=== PATIENT | male | born 1955 | race Caucasian/White ===

== ENCOUNTER 2017-03-07 05:25 | Inpatient (IN) | payer MEDICAID ==
[2017-03-06 15:15] LABS: HEMATOCRIT 44.2 % (42.0-54.0); HEMOGLOBIN 15.5 g/dL (13.5-17.5); MCH 29.4 pg (26.0-34.0); MCHC 35.1 g/dL (31.0-37.0); MCV 83.7 fL (80.0-100.0); MEAN PLATELET VOLUME 9.1 fL (7.4-10.4); RBC 5.28 10x6/uL (4.20-6.10); RDW 12.1 % (11.5-14.5); WBC 7.1 10x3/uL (4.8-10.8)
[2017-03-06 15:33] LABS: CALC OSMOLALITY 282 mosm/kg (275-300); CALCIUM 9.1 mg/dL (8.5-10.1); CARBON DIOXIDE 27.8 mmol/L (21.0-32.0); CHLORIDE - SERUM 106 mmol/L (98-107); GLUCOSE 102 mg/dL (74-106); POTASSIUM - SERUM 4.3 mmol/L (3.5-5.1); SODIUM 141 mmol/L (136-145); UREA NITROGEN 19 mg/dL (7-18); eGFR NON AFRICAN AMERICAN 81 mL/min (90-120)
[2017-03-07] VITALS (23 sets, daily range): BP systolic 131–169; BP diastolic 75–100; BMI 23.8; BMI 24.6
[~2017-03-07 05:25] MED LIST: FLUTICASONE PRO16 GM NASAL; HYDROCODONE-APA1 TAB PO; LANOXIN250 MCG PO; ZOCOR40 MG PO
--- NOTE | 2017-03-07 11:33 | NUR ---
RECIEVED PT FROM RR. AWAKE AND ALERT. ASSESSMENT PER FLOWSHEET.
--- NOTE | 2017-03-07 16:05 | NUR ---
SLEEPING NO DISTRESS NOTED. SR UP X 2. CALL LIGHT WITHIN REACH.
--- NOTE | 2017-03-07 21:00 | NUR ---
FAMILY AT BS VISITING. UPDATE GIVEN AND QUESTIONS ANSWERED.
--- NOTE | 2017-03-07 23:13 | NUR ---
REASSESSMENT PER FLOWSHEET, NO ACUTE CHANGES. STERILE NON ADHERENT DSG APPLIED TO R NECK INCISION PER PT REQUEST. VSS. C/L IN REACH.
[2017-03-08] VITALS (22 sets, daily range): BP systolic 126–166; BP diastolic 71–88
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
--- NOTE | 2017-03-08 03:12 | NUR ---
ABGS RESULTED. K+ 4.8. REASSESSMENT PER FLOWSHEET, NO ACUTE CHANGES. PT LESS CONFUSED, COOPERATIVE. I.S. 1500 WITH GOOD COUGH. ENCOURAGED DB&C.
--- NOTE | 2017-03-08 03:24 | NUR ---
REASSESSMENT PER FLOWSHEET, NO ACUTE CHANGES. PT RESTING QUIETLY, DENIES PAIN OR NEEDS. VSS. C/L IN REACH.
--- NOTE | 2017-03-08 04:44 | NUR ---
STATUS REPORT CALLED TO DR. MORALES. NEW ORDER TO CONSULT DR. BOSS. GEOVANI WELSH.
[2017-03-08 05:11] LABS: BASOPHILS 0.1 % (0-2); EOSINOPHILS 0.1 % (0-7); HEMATOCRIT 42.8 % (42.0-54.0); HEMOGLOBIN 14.9 g/dL (13.5-17.5); IMMATURE GRANULOCYTES 0.3 % (0-5); LYMPHOCYTES 14.2 % (15-50); MCH 29.2 pg (26.0-34.0); MCHC 34.8 g/dL (31.0-37.0); MCV 83.8 fL (80.0-100.0); MONOCYTES 10.6 % (2-11); NEUTROPHILS 74.7 % (40-80); PLATELET COUNT 181 10x3/uL (130-400); RBC 5.11 10x6/uL (4.20-6.10); RDW 12.2 % (11.5-14.5)
--- NOTE | 2017-03-08 05:13 | NUR ---
ADMIN PRN NORCO FOR C/O INCISIONAL SORENESS. IV SL'D. PT DENIES OTHER NEEDS.
--- NOTE | 2017-03-08 06:00 | NUR ---
SISTER AT BS. UPDATE GIVEN AND QUESTIONS ANSWERED. PT REPORTS ADEQUATE PAIN RELIEF. VSS. C/L IN REACH.
--- NOTE | 2017-03-08 06:18 | NUR ---
DR. KARYN GOODEN
[2017-03-08 06:41] LABS: CALC OSMOLALITY 279 mosm/kg (275-300); CALCIUM 8.8 mg/dL (8.5-10.1); CHLORIDE - SERUM 102 mmol/L (98-107); CREATININE - SERUM 0.9 mg/dL (0.6-1.3); GLUCOSE 132 mg/dL (74-106); POTASSIUM - SERUM 3.9 mmol/L (3.5-5.1); SODIUM 139 mmol/L (136-145); UREA NITROGEN 13 mg/dL (7-18); eGFR NON AFRICAN AMERICAN > 90 mL/min (90-120)
--- NOTE | 2017-03-08 07:49 | NUR ---
REPORT RECEIVED. SHIFT ASSESSMENT COMPLETE. PT AWAKE AND CONVERSANT. PT DENIES PAIN AT THIS TIME. SAYS "TINGLING IN LEFT ARM GETTING BETTER" STILL HAS SOME IN HIS THUMB. SOME SWELLING NOTED AT INCISION SITE OF RIGHT NECK. DRESSING INTACT AND CLEAN. BREAKFAST TRAY PROVIDED. PT QUESTIONING HOME MEDICATIONS.
--- NOTE | 2017-03-08 09:02 | NUR ---
SISTER AT BEDSIDE FOR VISITATION. ASKING ABOUT PT HOME MEDICATION. HAVE NOT BEEN RESTARTED BY PHYSICIAN. AWAITING DR MORALES TO ADDRESS.
--- NOTE | 2017-03-08 09:37 | NUR ---
SPOKE WITH DR MORALES. OK TO GIVE PT DIGOXIN DOSE. WANTS SAN CATHETER REMOVED TO SEE IF PATIENT ABLE TO URINATE ON HIS OWN. IN/OUT CATH PRN.
--- NOTE | 2017-03-08 09:50 | NUR ---
DR BOSS OFFICE CALLED TO SEE WHEN HE MIGHT COME SEE PATIENT. HAVE ORDERS TO REMOVE SAN, BUT WANTED UROLOGY INPUT PRIOR TO REMOVING IN CASE WANTS TO KEEP FOR FEW DAYS AND EVALUATE IN THE OFFICE.
--- NOTE | 2017-03-08 10:45 | NUR ---
DR BOSS CALLED BACK. ASKS THAT THE SAN REMAIN UNTIL HE COMES TO SEE PATIENT.
--- NOTE | 2017-03-08 11:27 | NUR ---
PT RESTING QUIETLY WITH EYES CLOSED AT THIS TIME. NO DISTRESS NOTED. SINUS JOHN IN 50'S ON THE MONITOR.
--- NOTE | 2017-03-08 14:03 | NUR ---
PT SLEEPING AT THIS TIME. NO DISTRESS NOTED. CALL LIGHT IN REACH.
--- NOTE | 2017-03-08 16:52 | NUR ---
PT UP IN CHAIR AT BEDSIDE FOR LAST HOUR. DINNER TRAY PROVIDED TO HIM.
--- NOTE | 2017-03-08 17:49 | NUR ---
PT ASSISTED BACK TO BED. PAIN PILL REQUESTED AND PROVIDED. DR MORALES HAS BEEN BY TO SEE PATIENT. PLAN IS TO DISCHARGE TOMORROW. STILL AWAITING DR BOSS TO COME SEE.
--- NOTE | 2017-03-08 18:29 | NUR ---
DR BOSS BY TO SEE PATIENT. SISTER AT BEDSIDE. PT WILL GO HOME WITH SAN CATHETER AND FOLLOW UP WITH DR BOSS IN 2 WEEKS. STARTING ON FINASTERIDE AND FLOMAX. NEOSPORIN TO URETHRAL OPENING TID.
--- NOTE | 2017-03-08 19:30 | NUR ---
REPORT RECEIVED AND CARE ASSUMED. INITIAL SHIFT ASSESSMENT COMPLETED SEE FLOWSHEET. CONTINUE TO MONITOR PT PER STANDARD CVICU PROTOCOL WITH ALL ALARMS VERIFED AND SET. IV IS S/L TO RIGHT HAND. PT ENCOURAGED TO CALL NURSE BEFORE GETTING OOB PT VERBALIZED COMPREHENSION
--- NOTE | 2017-03-08 20:15 | NUR ---
PT TEACHING AND DEMONSTRATION ON SAN CARE. PT RETURNED DEMONSTRATION WITH GOOD COMPREHENSION
--- NOTE | 2017-03-08 21:00 | NUR ---
MEDS GIVEN DOCUMENTED ON JUL. PT TEACHING DONE FOR PT AND FAMILY. VERBALIZED COMPREHENSION
--- NOTE | 2017-03-08 23:00 | NUR ---
PT HAS BEEN SLEEPING WELL RESPIRATIONS REG AND NONLABORED. ABLE TO TURN SELF INDEPENDENTLY
--- NOTE | 2017-03-09 01:00 | NUR ---
PT SLEEPING WELL TONIGHT. NOTE HR IN 50'S. WILL REPORT IN AM. PT IS ASYMPTOMATIC. DID RESTART HOME LANOXIN TODAY
[2017-03-09 03:00] VITALS: BP 165/96
--- NOTE | 2017-03-09 03:00 | NUR ---
pt has been sleeping, easily awaken. denies needs. no neuro changes, vss. remains bradycardic.
--- NOTE | 2017-03-09 03:30 | NUR ---
pt awake alert. c/o discomfort at insertion site of catheter. no visible trauma. hr in 80-90's. denies needs. continue to monitor
--- NOTE | 2017-03-09 04:24 | NUR ---
PT UP TO BR TO DEFECATE. PT TEACHING DONE ON F/C CARE AND MAINTAINENCE. PT DEMONSTRATED COMPREHENSION AMBULATING WITH BAG BELOW BLADDER LEVEL AND GUARDING TUBING TO PREVENT ACCIDENTAL DISLODGEMENT.
--- NOTE | 2017-03-09 05:30 | NUR ---
pt is up in chair watching television
[2017-03-09 07:00] VITALS: BP 147/91
--- NOTE | 2017-03-09 08:05 | NUR ---
Is the patient Alert and Oriented? Yes 0 * How many steps to enter\exit or inside your home? 4-5 rail 0 * PCP DR. JUÁREZ 0 * Pharmacy [facility] IN [place] 0 * Preadmission Environment Home Alone 0 * ADLs Independent 0 * Equipment None 0 * List name and contact numbers for known caregivers / representatives who currently or will assist patient after discharge: SISTER: DAVY [phone] [place] [phone] 0 * Community resources currently utilized None 0 * Additional services required to return to the preadmission environment? No 0 * Can the patient safely return to the preadmission environment? Yes 0 * Has this patient been hospitalized within the prior 30 days at any hospital? No PATIENT IS AWAKE AND ALERT. HE STATES HE LIVES ALONE BUT THAT HIS LADY FRIEND AND HIS SISTERS WILL BE AVAILABLE TO ASSIST HIM NEEDED. HIS SISTER, DAVY, WILL DRIVE HIM HOME AT DISCHARGE. DAVY: [phone] OR [phone]. PATIENT STATES DR. JUÁREZ IS HIS PCP. HE GETS HIS MEDS FROM [facility] IN [place]. PATIENT DENIES USE OF ANY DME AND DENIES EVER HAVING HOME HEALTH. HE WAS INDEPENDENT IN ALL ADL'S PRIOR TO COMING INTO THE HOSPITAL. THERE ARE 4-5 STEPS TO ENTER HIS HOME AND HE HAS A RAIL. PATIENT DENIES ANY DISCHARGE NEEDS AT THIS TIME.
--- NOTE | 2017-03-09 11:03 | NUR ---
DISCHARGE INSTRUCTIONS REVIEWED WITH PATIENT AND SISTER. SAN SITE CARE AND HOW TO EMPTY AND POSITION BAG REVIEWED WITH PATIENT AND SISTER. DISCHARGE INSTRUCTIONS PROVIDED TO PATIENT ALONG WITH WRITTEN PRESCRIPTIONS. NO ADDITIONAL QUESTIONS VOICED. RIGHT HAND IV HAS BEEN REMOVED, TIP INTACT.
--- NOTE | 2017-03-18 08:39 | OP ---
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 PROCEDURE: Anterior cervical discectomy and fusion at C5-C6 and C6-C7 with removal of osteophytes, PEEK interbody cages, Biocell stem cells bone allograft at C5-C6 and C6-C7; VIP anterior cervical plate and screws from [employer] and colonial interbody PEEK cages. DESCRIPTION AND TECHNIQUE: After induction of general endotracheal anesthesia, the patient was positioned supine on the operating table. Neck was prepped and draped in the usual sterile fashion. Fluoroscopic x-ray and Troy dissector localized the C5 vertebral body. A transverse skin incision was carried out from the midline to the sternocleidomastoid muscle. The platysma was divided with Bovie cautery. Using blunt and sharp dissection with Metzenbaum scissors, I proceeded in an avascular plane medial to the carotid sheath. The longus colli muscles were elevated from bodies of C5, C6 and C7. A self-retaining retractor was placed deep to the longus colli muscles. Laie distracting pins were placed by the C5, C6 and C7. Disk spaces were incised with #11 blade at both levels under distraction. Osteophytes were drilled away posteriorly with Midas-Chris drill. The posterior longitudinal ligament was removed with Cloward rongeurs. Following this, the dura was decompressed at both levels. A PEEK interbody cage was placed in each disk space after preparation of the endplates. These PEEK cages were filled with Biocell bone stem cells prior to placement of the cages. A VIP anterior cervical 32-mm plate was used to span the C5-C6 and C6-C7 interspaces. Self-drilling screws were placed through the vertebral bodies through the holes of the plate. Locking cams were tightened down the screw heads. Meticulous hemostasis was maintained throughout the wound. The wound was irrigated with copious amounts of Ancef irrigant solution. The platysma and subdermal layer were closed with interrupted 3-0 Vicryl suture. The skin was reapproximated with a Dermabond skin cement. The patient was awakened in good condition and taken to recovery. All counts were reported as correct. Estimated blood loss was minimal. TRANSINT:[id number] Voice Confirmation ID: [id number] DOCUMENT ID: [id number] SNEHAL MORALES MD at 0839 CC: [id number] DICTATION DATE: 03/16/17 0853 TICKET COLLECTOR: 03/16/17 1213 DIS IN 03/09/17 [facility] [address] [place] [address]
--- NOTE | 2017-05-09 13:26 | DS ---
PATIENT:HOWARD CALLAWAY :59 MEDICAL RECORD: [id number] DISCHARGE SUMMARY ADMISSION DATE: 03/07/17 DISCHARGE DATE: 03/09/17 DATE OF ADMISSION: 03/07/2017 DATE OF DISCHARGE: 03/08/2017 ADMISSION DIAGNOSIS: Cervical radiculopathy secondary to osteophyte formation at C5-C6 and C6-C7. HOSPITAL COURSE: The patient was admitted after surgery for 2-level ACF at C5-C6 and C6-C7. He tolerated the procedure well, was monitored overnight in the ICU on IV Decadron. He was discharged home on the following morning with a regular diet and hydrocodone for pain. He is to follow up with Dr. Morales in 1 week with a lateral C-spine. DIET: Regular. TRANSINT:[id number] Voice Confirmation ID: [id number] DOCUMENT ID: [id number] SNEHAL MORALES MD at 1326 CC: [id number] DICTATION DATE: 05/02/171712 HAZARDOUS MATERIALS ANALYST: 05/03/17 1146 DIS IN 03/09/17 [id number] [place] [address]
== END 2017-03-09 11:06 | disposition home or self-care (01) | DRG 473 ==
LOC: D.CVICU 05:25 → D.SDCHOLD 05:25 → D.CVICU 09:15
PROVIDERS: Anesthesiology; ADMIT Neurological Surgery
PROC: 0RG20K0 Fusion of 2 or more Cervical Vertebral Joints with Nonautologous Tissue Substitute, Anterior Approach, Anterior Column, Open Approach (ICD-10-PCS; 2017-03-07)
PROC: 0RG20A0 Fusion of 2 or more Cervical Vertebral Joints with Interbody Fusion Device, Anterior Approach, Anterior Column, Open Approach (ICD-10-PCS; principal; 2017-03-07 07:30)
PROC: 0RB30ZZ Excision of Cervical Vertebral Disc, Open Approach (ICD-10-PCS; 2017-03-07 07:30)
DX: M50.122 Cervical disc disorder at C5-C6 level with radiculopathy (principal); M50.123 Cervical disc disorder at C6-C7 level with radiculopathy; M25.78 Osteophyte, vertebrae; R33.9 Retention of urine, unspecified; N40.1 Benign prostatic hyperplasia with lower urinary tract symptoms; N39.41 Urge incontinence; M48.02 Spinal stenosis, cervical region

== ENCOUNTER → 2017-03-22 18:36 | Outpatient (CLI) | payer MEDICAID ==
[2017-03-07 12:00] VITALS: BMI 24.6
[~2017-03-22 18:36] MED LIST changes: +PROSCAR5 MG PO
== END | disposition home or self-care (01) ==
LOC: D.LABREF 18:36
DX: N39.0 Urinary tract infection, site not specified (principal)

== ENCOUNTER 2017-06-14 10:46 | Outpatient (CLI) | payer MEDICAID ==
[~2017-06-14] VITALS: Ht 182.9 cm; Wt 77.3 kg
--- NOTE | ~2017-06-14 | OP ---
PATIENT NAME: HOWARD CALLAWAY MEDICAL RECORD: [id number] :59 LOCATION:[facility] ADMISSION DATE: SURGEON: CISCO REY MD DATE OF OPERATION: 06/14/2017 PROCEDURE: Left heart catheterization, selective coronary angiography, right radial approach. CATHETERS: Radial sheath, Charlotte catheter. The procedure was well tolerated and the patient returned to patel, sheath removed and TR band was placed. FINDINGS: Left ventriculography in the 30-degree GOODMAN view: Normal wall motion. Normal systolic function. CORONARY ANATOMY: LEFT MAIN: Left main is free of disease. LAD: Free of disease in the diagonal system. CIRCUMFLEX: Free of disease in the marginal system. RIGHT CORONARY ARTERY: Dominant artery, gives rise to the PDA, free of disease. IMPRESSION: Normal systolic function. Normal coronary anatomy. TRANSINT:[id number] Voice Confirmation ID: [id number] DOCUMENT ID: [id number] CISCO REY MD at 1347 CC: [id number] DICTATION DATE: 06/14/17 1334 BROADCAST JOURNALIST: 06/14/17 1709 DEP CLI 06/14/17 [address] [place] [address]
--- NOTE | ~2017-06-14 | HEMODYNAMI ---
PATIENT:HOWARD CALLAWAY MEDICAL RECORD: [id number] : 59 LOCATION:[facility] ADMISSION DATE: 06/14/17 Generatedon:06/14/201713:29 Patient name: HOWARD CALLAWAY Patient #: [id number] SSN: [id number] : 1955 Date of study: 06/14/2017 Page: Of Hemodynamic Procedure Report Patient Data Patient Demographics Procedure consent was obtained First Name: HOWARD Gender: Male Last Name: CESIA : 1955 [facility] Initial: MAGGY Age: 61 year(s) Patient #: [id number] Race: SSN: [id number] Additional ID: [id number] Contact details Address: [address] [place] [address] State: [place] City: [place] Zip code: [address] Admission Admission Data Admission Date: 06/14/2017 Admission Time: 10:46 Arrival Date: 06/14/2017 Arrival Time: 13:00 Admit Source: Other Insurance Payor: Private health insurance Height (in.): 72 BSA: 2.1 (m2) Height (cm.): 182.88 BMI: 26.31 (kg/m2) Weight (lbs.): 194 Weight (kg.): 88 Lab Results Lab Result Date: 06/14/2017 Lab Result Time: 0:00 Biochemistry Name Units Result Min Max BUN mg/dl 14 --(--*-)-- 7 18 Creatinine mg/dl 1 --(--*-)-- 0.6 1.3 CBC Name Units Result Min Max Hemoglobin g/dl 15.7 --(--*-)-- 13.5 17.5 Procedure Procedure Types Cath Procedure Diagnostic Procedure [facility] w/Coronaries Miscellaneous Procedures Moderate Sedation up to 30 minutes Procedure Description Procedure Date Procedure Date: 06/14/2017 Procedure Start Time: 13:18 Procedure End Time: 13:27 Procedure Staff Name Function Wilmar Cao MD Performing Physician Cathy Ye RT Monitor Anabel Bull RN Nurse Felix Baez RT Scrub Indication Angina Procedure Data Cath Procedure Fluoroscopy Diagnostic fluoroscopy Total fluoroscopy Time: 1 time: 1 min min Diagnostic fluoroscopy Total fluoroscopy dose: 235 dose: 235 mGy mGy Contrast Material Contrast Material Type Amount (ml) Isovue 300 40 Entry Location Entry Primary Successful Side Size Upsize Upsize Entry Closure Griffin ccessful Closure Location (Fr) 1 (Fr) 2 (Fr) Remarks Device Remarks Radial Right 5 Fr Mechanical artery Compression Estimated blood loss: 5 ml Diagnostic catheters Device Type Used For End Catheter Placement DIAGNOSTIC Pindall 110cm 5 Multi-vessel Fr catheter ([id number]) Angiography Procedure Complications No complications Procedure Medications Medication Administration Route Dosage 0.9% NaCl I.V. 100 ml/hr Oxygen NC 2 l/min Lidocaine 2% added to field 20 Heparin Flush Bag added to field 2 bags (1000units/500ml NS) Radial Cocktail added to field 1 syringe (Verapomil 2mg/Nitro 400mcg/Heparin 1500units) Fentanyl I.V. 50 mcg Versed I.V. 1 mg Versed I.V. 1 mg Fentanyl I.V. 50 mcg Fentanyl I.V. 100 mcg Hemodynamics Rest BSA: 2.1 (m2) HGB: 15.7 (g/dl) O2 Consumption: Estimated: 240.38 (ml/min) O2 Con sumption indexed: Estimated:114.47 (ml/min/m) Heart Rate: 61 (bpm) Pressure Samples Time Site Value (mmHg) Purpose Heart Use Rate(bpm) 13:22 LV 203/2,91 Snapshot 128 13:22 AO 121/68(91) Pullback 78 13:22 LV 120/0,5 Pullback 78 Gradients Valve Time Site 1 Site 2 Mean SEP/DFP Peak To Heart Use (mmHg) (sec/min) Peak Rate (mmHg) (bpm) Aortic 13:22 LV AO 0 9 0 78 120/0,5 121/68(91) Calculations Valve P-P Mean Valve Index Valve Source Name Gradient Area Flow (cm2) Aortic 0 0 0 0 Snapshots Pre Cath Intra NCS Post Cath Vital Signs Time Heart Resp SPO2 etCO2 NIBP (mmHg) Rhythm Pain Sedation Rate (ipm) (%) (mmHg) Status Level (bpm) 12:58:34 65 19 99 33.6 154/93(134) NSR 0 (11) 10(A) , No pain 13:02:50 63 15 98 16 155/90(127) NSR 0 (11) 10(A) , No pain 13:07:08 66 15 97 34.3 143/81(105) NSR 0 (11) 10(A) , No pain 13:11:23 56 16 96 36.6 126/78(94) NSR 0 (11) 9(A) , No pain 13:15:33 55 16 96 42 133/75(98) NSR 0 (11) 9(A) , No pain 13:19:43 69 16 96 37.4 146/83(112) NSR 0 (11) 9(A) , No pain 13:24:03 70 18 98 36.6 140/70(90) NSR 0 (11) 10(A) , No pain Medications Time Medication Route Dose Verified Delivered Reason Notes Effectiveness by by 12:47:41 0.9% NaCl I.V. 100ml/hr Wilmar Little used for [facility]. Alfredo Bull RN procedure 12:47:50 Oxygen NC 2 l/min Wilmar Little Per [facility]. Alfredo Bull RN physician 12:47:58 Lidocaine 2% added 20ml Wilmar Urban for local to vial [facility] anesthetic field MD WORRELL 12:48:04 Heparin Flush added 2 bags Wilmar Urban used for Bag to [facility] procedure (1000units/500ml field MD WORRELL NS) 13:03:19 Radial Cocktail added 1 Wilmar Urban for (Verapomil to syringe [facility] vasodilation 2mg/Nitro field MD WORRELL 400mcg/Heparin 1500units) 13:10:22 Fentanyl I.V. 50 mcg Wilmar Little for sedation [facility]. Alfredo Bull RN, MD 13:10:32 Versed I.V. 1 mg Wilmar Little for sedation [facility]. Alfredo Bull RN, MD 13:13:07 Versed I.V. 1 mg Wilmar Little for sedation [facility]. Alfredo Bull RN, MD 13:13:13 Fentanyl I.V. 50 mcg Wilmar Little for sedation St. Alfredo Bull RN, MD 13:21:20 Fentanyl I.V. 100 mcg Wilmar Little for sedation [facility]. Alfredo Bull RN, MD Procedure Log Time Note 12:35:45 Indication : Angina 12:36:12 Felix Zaldivarley RT(R) sent for patient. Start room use. 12:36:13 Time tracking: Regular hours 12:36:17 Plan of Care:Hemodynamics will remain stable., Cardiac rhythm will remain stable., Comfort level will be maintained., Respiratory function will remain adequate., Patient/ family verbilizes understanding of procedure., Procedure tolerated without complication., Recovers from procedure without complications.. 12:36:39 Informed consent obtained and on chart 12:38:46 Admit Source: Other 12:38:56 Arrival Date: 06/14/2017 1:00:00 PM 12:39:02 Insurance Payor : Private health insurance 12:39:09 Patient Height : 72 inches 12:39:14 Patient Weight : 194 lbs 12:47:41 0.9% NaCl 100ml/hr I.V. was administered by Anabel Bull RN; used for procedure; 12:47:50 Oxygen 2 l/min NC was administered by Anabel Bull RN; Per physician; 12:47:58 Lidocaine 2% 20ml vial added to field was administered by Wilmar Cao MD; for local anesthetic; 12:48:04 Heparin Flush Bag (1000units/500ml NS) 2 bags added to field was administered by Wilmar Cao MD; used for procedure; 12:52:43 Patient received from Pre/Post Procedure Room to [facility] 2 Alert and oriented. Tansferred to table in Supine position. 12:52:45 Warm blankets applied, and tyrese hugger turned on for patient comfort. 12:52:45 Correct patient and procedure confirmed by team. 12:52:46 ECG and BP/O2 sat monitors applied to patient. 12:57:27 Vital chart was started 13:03:09 Baseline sample Acquired. 13:03:15 Rhythm: sinus rhythm 13:03:18 Full Disclosure recording started 13:03:19 Radial Cocktail (Verapomil 2mg/Nitro 400mcg/Heparin 1500units) 1 syringe added to field was administered by Wilmar Cao MD; for vasodilation; 13:03:26 H&P Date Dictated: 06/01/2017 Within 30 days and on chart., H&P Addendum completed by physician on day of procedure. (MUST COMPLETE FOR ALL OUTPATIENTS). 13:03:27 Pre-procedure instructions explained to patient. 13:03:28 Pre-op teaching completed and patient verbalized understanding. 13:03:29 Family in waiting room. 13:03:30 Patient NPO since Midnight. 13:03:33 Is the patient allergic to Iodine/contrast media? No. 13:03:34 Was the patient premedicated? No 13:03:35 Is patient on blood thinner?No 13:03:37 Patient diabetic? No. 13:03:41 Previous problem with sedation/anesthesia? No ? 13:03:43 Snore? No 13:03:44 Sleep apnea? No 13:03:45 Deviated septum? No 13:03:46 Opens mouth fully? Yes 13:03:46 Sticks out tongue? Yes 13:03:48 Airway obstruction? No ? 13:03:50 Dentures? No ? 13:03:55 Pre procedure: right dorsailis pedis pulse 2+ Normal; easily identifiable; not easily obliterated 13:03:57 Pre procedure: left dorsailis pedis pulse 2+ Normal; easily identifiable; not easily obliterated 13:03:59 Patient pain scale 0/10 ?. 13:04:05 IV patent on arrival in left forearm with 0.9% NaCl at [facility]. 13:09:08 Lab Result : BUN 14 mg/dl 13:09:08 Lab Result : Hemoglobin 15.7 g/dl 13:09:08 Lab Result : Creatinine 1 mg/dl 13:09:31 Lab results completed and on chart. 13:09:37 Right Radial & Right Groin area was prepped with chlora-prep and draped in sterile fashion 13:09:38 Alarms reviewed by R. N. 13:09:39 Sharps counted by scrub and verified by R.N. 13:10:07 Physician arrived 13:10:08 --------ALL STOP TIME OUT------ 13:10:08 Final Timeout: patient, procedure, and site verified with staff and physician. All members of the team are in agreement. 13:10:15 Right Radial & Right Groin site verified by team. 13:10:17 Physical assessment completed. ASA score P 2 - A patient with mild systemic disease as per Wilmar Cao MD. 13:10:21 Sedation plan: IV Moderate Sedation Medication:Versed, Fentanyl 13:10:22 Fentanyl 50 mcg I.V. was administered by Anabel Bull RN; for sedation; 13:10:32 Versed 1 mg I.V. was administered by Anabel Bull RN; for sedation; 13:12:42 Use device set Radial Dx or PCI 13:12:43 ACIST Syringe (81541) opened to sterile field. 13:12:44 Medline Cath Pack ([id number]) opened to sterile field. 13:12:45 Bag Decanter (2002S) opened to sterile field. 13:12:45 SHEATH 6FR Slender ([id number]) opened to sterile field. 13:12:46 DIAGNOSTIC WIRE .035 260cm J wire ([id number]) opened to sterile field. 13:12:47 ACIST Hand Control (33227) opened to sterile field. 13:12:47 ACIST Manifold (97138) opened to sterile field. 13:13:07 Versed 1 mg I.V. was administered by Anabel Bull RN; for sedation; 13:13:13 Fentanyl 50 mcg I.V. was administered by Anabel Bull RN; for sedation; 13:18:35 Procedure started. 13:18:45 Local anesthetic to right radial artery with Lidocaine 2% by Wilmar Cao MD.INITIAL ACCESS ONLY 13:18:54 A 5 Fr sheath was inserted into the Right Radial artery 13:21:20 Fentanyl 100 mcg I.V. was administered by Anabel Bull RN; for sedation; 13:21:30 A DIAGNOSTIC Pindall 110cm 5 Fr catheter ([id number]) was advanced over the wire and used for Multi-vessel Angiography. 13:22:11 LV hemodynamics recorded. 13:22:12 LV gram done using GOODMAN 13:22:15 EF : 55 % 13:22:15 Injector settings: Ml/sec: 5, Volume: 15, 13:22:54 LCA angiography performed. 13:22:57 Injector settings: Ml/sec: 3, Volume: 6, 13:23:56 RCA angiography performed. 13:24:16 Injector settings: Ml/sec: 3, Volume: 6, 13:25:02 Catheter removed. 13:25:08 TR BAND Standard ([id number]) opened to sterile field. 13:25:19 Sheath removed intact; hemostasis achieved with Mechanical Compression to the Right Radial artery. 13:25:20 Procedure ended.(Physican Out) 13:25:31 Fluoroscopy time 01.00 minutes. 13:25:35 Fluoroscopy dose: 235 mGy 13:25:35 Flurop Dose total: 235 13:25:59 Contrast amount:Isovue 300 40ml. 13:26:01 Sharps counted by scrub and verified by R.N. 13:26:13 TR band inflated with 10cc of air. 13:26:15 Insertion/operative site no bleeding no hematoma. 13:26:38 Post-op/insertion site Right Radial artery dressed using a 4 x 4 and Tegaderm. 13:26:46 Post right radial artery:stable 13:26:48 Post Procedure Pulses reassessed and unchanged 13:26:58 Post procedure rhythm: unchanged. 13:27:01 Estimated blood loss: 5 ml 13:27:03 Post procedure instruction explained to patient.Patient verbalizes understanding. 13:27:04 Patient needs reinforcement of post procedure teaching. 13:27:15 Procedure type changed to Cath procedure, Diagnostic procedure, LHC, LHC w/Coronaries, Miscellaneous Procedures, Moderate Sedation up to 30 minutes 13:27:16 Procedure and supply charges have been captured, reviewed, submitted and are correct. 13:27:20 Procedure Complication : No complications 13:27:22 Vital chart was stopped 13:27:23 See physician's report for complete and final results. 13:27:34 Report given to Pre/Post Procedure Room. 13:27:36 Patient transfered to Pre/Post Procedure Room with Stretcher. 13:27:44 Procedure ended. 13:27:44 Full Disclosure recording stopped 13:27:51 End room use (Document Last) Device Usage Item Name Manufacture Quantity Catalog Hospital Part Current Minimal Lot# / Number Charge Number Stock Stock Serial# Code ACIST Acist 1 34776 236737 162408 403658 20 Syringe [employer] (80546) Systems Inc Medline Cath Cardinal 1 [id number] 103878 76905 099881 5 WITOI ([id number]) Bag Decanter Microtek 1 428728 49455 995034 5 () Medical Inc. SHEATH 6FR Terumo 1 [id number] 956525 548247 531785 40 Slender ([id number]) DIAGNOSTIC St Juan 1 220398 591817 168580 086663 30 WIRE .035 260cm J wire (500282) ACIST Hand Acist 1 30178 096317 054487 145850 5 Control Medical (61659) Systems Inc ACIST Acist 1 68983 307156 188813 299729 5 Manifold Medical (77797) Systems Inc DIAGNOSTIC Terumo 1 40-3663 414678 834069 072614 5 Pindall 110cm 5 Fr catheter (160624) TR BAND Terumo 1 [id number] 632421 334779 355318 40 Standard ([id number]) Signature Audit Ellis Stage Time Signature Unsigned Intra-Procedure 06/14/2017 Cathy Ye 1:29:29 PM RT(R) Signatures Monitor : Cathy Ye RT Signature : Date : Time : [place] [id number] [place] [address]
[~2017-06-14 10:46] MED LIST changes: -PROSCAR5 MG PO
[2017-06-14] MEDS ORDERED: HYDROCODONE-APA1 TAB PO (11:05)
[2017-06-14] MEDS ORDERED: PROSCAR5 MG PO (11:05)
[2017-06-14 11:25] LABS: BASOPHILS 0.1 % (0-2); EOSINOPHILS 1.9 % (0-7); HEMATOCRIT 45.8 % (42.0-54.0); HEMOGLOBIN 15.7 g/dL (13.5-17.5); IMMATURE GRANULOCYTES 0.1 % (0-5); LYMPHOCYTES 18.1 % (15-50); MCH 28.4 pg (26.0-34.0); MCHC 34.3 g/dL (31.0-37.0); MEAN PLATELET VOLUME 9.1 fL (7.4-10.4); MONOCYTES 6.1 % (2-11); NEUTROPHILS 73.7 % (40-80); PLATELET COUNT 166 10x3/uL (130-400); RBC 5.52 10x6/uL (4.20-6.10); WBC 8.1 10x3/uL (4.8-10.8)
[2017-06-14 11:27] VITALS: BP 150/101; Ht 182.9 cm; Wt 77.3 kg
[2017-06-14 11:36] LABS: CALC OSMOLALITY 279 mosm/kg (275-300); CALCIUM 9.1 mg/dL (8.5-10.1); CARBON DIOXIDE 29.2 mmol/L (21.0-32.0); CHLORIDE - SERUM 102 mmol/L (98-107); GLUCOSE 101 mg/dL (74-106); POTASSIUM - SERUM 3.7 mmol/L (3.5-5.1); SODIUM 140 mmol/L (136-145); UREA NITROGEN 14 mg/dL (7-18); eGFR NON AFRICAN AMERICAN 81 mL/min (90-120)
== END 2017-06-14 17:16 | disposition home or self-care (01) ==
LOC: D.CATH 10:46
PROVIDERS: Internal Medicine Interventional Cardiology
DX: I20.9 Angina pectoris, unspecified (principal); R00.2 Palpitations; E78.5 Hyperlipidemia, unspecified; Z01.812 Encounter for preprocedural laboratory examination

== ENCOUNTER → 2018-09-20 10:14 | Outpatient (CLI) | payer MEDICAID ==
[2017-06-14 11:27] VITALS: BMI 23.1
[~2018-09-20 10:14] MED LIST changes: +PROSCAR5 MG PO
--- NOTE | 2018-09-25 08:49 | EC ---
PATIENT:HOWARD CALLAWAY DATE OF SERVICE: 09/20/18 SEX: M MEDICAL RECORD: [id number] DATE OF : 59 [facility] 62 ADMISSION DATE: 09/20/18 REFERRING PHYSICIAN: INTERPRETING PHYSICIAN: CISCO REY MD ECHOCARDIOGRAM REPORT ECHO CHARGES 4 ECHO COMPLETE Date: 09/20/18 CLINICAL DIAGNOSIS: PALPITATIONS ECHOCARDIOGRAPHIC MEASUREMENTS (adult normal given) AC root (d.<3.7cm) 3.3 cm LV Septum d (<1.2 cm> 1.5 cm Valve Excursion 2.1 cm LV Septum (systole) 1.6 cm Left Atria (s.<4.0cm> 3.7 cm LVPW d(<1.2cm) 1.6 cm RV (d.<2.3cm) 4.5 cm LVPW (sytole) 1.8 cm LV diastole(<5.6CM) 5.3 cm MV E-F(>70mm/sec) cm LV systole 3.4 cm LVOT Diameter 2.2 cm MV exc.(>10mm) 1.8 cm Est.ejection fraction (50-75%) % DOPPLER: LVIT cm/sec A 61.0 cm/sec E 73.0 cm/sec LA cm/sec RVSP 25 mmHg LVOT 132 cm/sec AOP1/2T m/s Asc. Ao cm/sec RVOT 102 cm/sec RA cm/sec PA 117 cm/sec AV Gradient Peak 10.21mmHg AV Mean 5.05 mmHg AV Area 2.6 cm MV Gradient Peak 3.37 mmHg MV Mean 1.12 mmHg MV Area cm COMMENTS: Rn Hospice: Christina MALLOY [employer] Operator: 3 Dr. Cao TAPE# PACS Pericardial Effusion N DATE OF SERVICE: 09/20/2018 Adequate 2-D echo, color-flow and spectral Doppler, and M-mode. LVH is present. LV internal dimensions are normal. Wall motion is normal. EF is greater than or equal to 55%. Aortic valve is tricuspid. No evidence of stenosis by Doppler interrogation. Left atrium is normal at 3.7 cm. Mitral valve shows no prolapse. Trace MR. Right-sided chambers are grossly normal. Trace TR. ECHOCARDIOGRAM REPORT [id number] HOWARD CALLAWAY TRANSINT:[id number] Voice Confirmation ID: [id number] DOCUMENT ID: [id number] CISCO REY MD at 0849 CC: [id number] DICTATION DATE: 09/20/18 1509 SUPERVISOR IN CIRCUIT TESTING: 09/20/181952 DEP CLI 09/20/18 [place] [id number] [place] [id number]
== END | disposition home or self-care (01) ==
LOC: D.HCCARDIO 10:14
PROVIDERS: ATTEND Internal Medicine Interventional Cardiology
DX: R00.2 Palpitations (principal)

== ENCOUNTER → 2019-10-15 10:38 | Outpatient (CLI) | payer BC ==
[2017-06-14 11:27] VITALS: BMI 23.1
--- NOTE | 2019-10-17 08:04 | EC ---
PATIENT:HOWARD CALLAWAY DATE OF SERVICE: 10/15/19 SEX: M MEDICAL RECORD: [id number] DATE OF : [birth year] LOCATION:D[facility] AGE OF PATIENT: 63 ADMISSION DATE: 10/15/19 REFERRING PHYSICIAN: INTERPRETING PHYSICIAN: CISCO REY MD ECHOCARDIOGRAM REPORT ECHO CHARGES 4 ECHO COMPLETE Date: 10/15/19 CLINICAL DIAGNOSIS: HX OF PALPITATIONS/ HTN ECHOCARDIOGRAPHIC MEASUREMENTS (adult normal given) AC root (d.<3.7cm) 3.4 cm LV Septum d (<1.2 cm> 1.5 cm Valve Excursion 1.8 cm LV Septum (systole) 1.8 cm Left Atria (s.<4.0cm> 3.3 cm LVPW d(<1.2cm) 1.4 cm RV (d.<2.3cm) 3.2 cm LVPW (sytole) 1.6 cm LV diastole(<5.6CM) 5.1 cm MV E-F(>70mm/sec) cm LV systole 3.7 cm LVOT Diameter 2.0 cm MV exc.(>10mm) 1.7 cm Est.ejection fraction (50-75%) % DOPPLER: LVIT cm/sec A 60.0 cm/sec E 67.0 cm/sec LA cm/sec RVSP 34 mmHg LVOT 140 cm/sec AOP1/2T m/s Asc. Ao 147 cm/sec RVOT 75 cm/sec RA cm/sec PA 106 cm/sec AV Gradient Peak 8.66 mmHg AV Mean 4.36 mmHg AV Area 2.7 cm MV Gradient Peak 2.62 mmHg MV Mean 0.62 mmHg MV Area cm COMMENTS: Logging Equipment Operator: 2 DUSTIN MALLOY Decal Decorator: 3 Dr. Cao TAPE# PACS Pericardial Effusion N DATE OF SERVICE: Adequate 2D, color flow imaging, spectral Doppler, and M-Mode. LVH is present. LV internal dimension is normal. Wall motion is normal. EF greater than or equal to 55%. Aortic valve is tricuspid. No evidence of stenosis by Doppler interrogation. Left atrium is normal at 3.3 cm. Mitral valve shows no prolapse. Trace MR. Right-sided chambers are grossly normal. Trace TR. ECHOCARDIOGRAM REPORT [id number] HOWARD CALLAWAY TRANSINT:[id number] Voice Confirmation ID: [id number] DOCUMENT ID: [id number] CISCO REY MD at 0804 CC: [id number] DICTATION DATE: 10/15/19 163 SPANNER OPERATOR: 10/16/19 0232 DEP CLI 10/15/19 [place] [id number] [place] [id number]
== END | disposition home or self-care (01) ==
LOC: D.HCCECHO 10:38
PROVIDERS: ATTEND Internal Medicine Interventional Cardiology
DX: I10 Essential (primary) hypertension (principal)

== ENCOUNTER → 2020-10-20 11:01 | Outpatient (CLI) | payer MEDICAID ==
[2017-06-14 11:27] VITALS: BMI 23.1
--- NOTE | 2020-10-22 08:19 | EC ---
PATIENT:HOWARD CALLAWAY DATE OF SERVICE: 10/20/20 SEX: M MEDICAL RECORD: [id number] DATE OF : [birth year] LOCATION:D[facility] AGE OF PATIENT: 64 ADMISSION DATE: 10/20/20 REFERRING PHYSICIAN: INTERPRETING PHYSICIAN: CISCO REY MD ECHOCARDIOGRAM REPORT ECHO CHARGES 4 ECHO COMPLETE Date: 10/20/20 CLINICAL DIAGNOSIS: HX OF PALPITATIONS/ASSESS EF AND VALVES ECHOCARDIOGRAPHIC MEASUREMENTS (adult normal given) AC root (d.<3.7cm) 3.9 cm LV Septum d (<1.2 cm> 1.5 cm Valve Excursion 2.2 cm LV Septum (systole) 1.8 cm Left Atria (s.<4.0cm> 3.7 cm LVPW d(<1.2cm) 1.5 cm RV (d.<2.3cm) 4.7 cm LVPW (sytole) 1.8 cm LV diastole(<5.6CM) 4.5 cm MV E-F(>70mm/sec) cm LV systole 3.0 cm LVOT Diameter 2.2 cm MV exc.(>10mm) 1.6 cm Est.ejection fraction (50-75%) % DOPPLER: LVIT cm/sec A 68.0 cm/sec E 83.0 cm/sec LA cm/sec RVSP 29 mmHg LVOT 121 cm/sec AOP1/2T m/s Asc. Ao 162 cm/sec RVOT 64 cm/sec RA cm/sec PA 1454 cm/sec AV Gradient Peak 10.48mmHg AV Mean 4.90 mmHg AV Area 2.7 cm MV Gradient Peak 3.12 mmHg MV Mean 0.77 mmHg MV Area cm COMMENTS: Industrial Conveyor Belt Repairer: 2 DUSTIN MALLOY Baking Factory Worker: 3 Dr. Cao TAPE# PACS Pericardial Effusion N DATE OF SERVICE: 10/20/2020 Adequate 2D, color flow imaging, spectral Doppler, and M-Mode. FINDINGS: LVH is present. LV internal dimension is normal. Wall motion is normal. EF is greater than or equal to 55%. Aortic valve is tricuspid. Mild sclerosis. No stenosis. Left atrium is normal at 3.7 cm. Mitral valve shows no prolapse. Trace MR. Right side is grossly normal. Mild TR. TRANSINT:[id number] Voice Confirmation ID: [id number] DOCUMENT ID: [id number] ECHOCARDIOGRAM REPORT [id number] HOWARD CALLAWAY,CISCO Jacques MD at 0819 CC: [id number] DICTATION DATE: 10/21/20 161 PIER WORKER: 10/21/20 2319 DEP CLI 10/20/20 [place] [id number] [place] [address]
== END | disposition home or self-care (01) ==
LOC: D.HCCECHO 11:00
PROVIDERS: ATTEND Internal Medicine Interventional Cardiology
DX: R00.2 Palpitations (principal)